=== PATIENT | female | born 1975 | race Caucasian/White ===

== ENCOUNTER 2025-04-01 10:20 | Emergency (ER) | payer BC, SELFPAY ==
--- OUTSIDE RECORDS SUMMARY | 2025-04-01 10:26 | XMS_ITS | Clinical Summary ---
Author Organization [facility] Address [address] [place] [address] Care Team Providers Care Siding Applicator Name Role Phone Jeremiah Malagon MD Primary Care Provider [phone] Source Comments [facility],non-owned Affiliates and Associated Physician Practices is amultiple site organization consisting of ambulatory clinics and hospital sitesin [place], [place], [place] and [place]. This disclosure is being madepursuant to the Care Everywhere program and may not contain all information available regarding this patient. 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 Gender Identity Not on file Sexual Orientation Not on file Plan of Treatment Health Maintenance Due Date Last Done Comments COLOGUARD (AGES 45-75) - COL ON CA SCREENING 1974 COLON MONITORING 1974 COLONOSCOPY - COLON CA SCREENING 1974 CT COLONOGRAPHY - COLON CA SCREENING 1974 Colorectal Cancer Screening 1974 FIT - COLON CA SCREENING 1974 FLEX SIG - COLON CA SCREENING 1974 LIPID TESTING 1974 MAMMOGRAM 1974 HIV SCREENING 1989 HEPATITIS C SCREENING 01/27/1992 DTAP/TDAP/TD VACCINES (1 - Tdap) 1993 HEPATITIS B VACCINE (1 of 3 - 19+ 3-dose series) 1993 PNEUMOCOCCAL VACCINE 50+ (1 of 1 - PCV) 02/01/2024 ZOSTER VACCINE (1 of 2) 02/01/2024 COVID-19 VACCINE (1 - 2023-2 5 season) 2024 DEPRESSION SCREENING 09/27/2024 INFLUENZA VACCINE (Season Ended) 2025 HIB VACCINE Aged Out No longer eligi ble based on patient's age to complete this topic HPV VACCINE Aged Out No longer eligi ble based on patient's age to complete this topic MENINGOCOCCAL (Group B) VACC INE SHARED DECISION-MAKING Aged Out No longer eligibl e based on patient's age to complete this topic MENINGOCOCCAL GROUPS A/C/Y/W VACCINE Aged Out No longer eligible b ased on patient's age to complete this topic Insurance [employer] [facility] Care Teams Siding Applicator Relationship Specialty Start Date End Date Jeremiah Malagon MD [address] [place] [address] PCP - General 06/20/18
--- OUTSIDE RECORDS SUMMARY | 2025-04-01 10:26 | XMS_ITS | Clinical Summary ---
Author Organization [facility] [place] [facility] Address [address] [place] [address] Care Team Providers Care Practice Manager Name Role Phone Marino London MD Primary Care Provider [phone] Allergies Active Allergy Reactions Criticality Noted Date Comments Heparin Other (See comments) Low 07/09/2021 Hyper penia Penicillin Hives,Rash Medium 07/09/2021 Medications Eliquis 5 mg tablet TAKE 2 TABLETS BY MOUTH TWICE DAILY FOR 7 DAYS THEN TAKE 1 TABLET BY MOUTH TWICE DAILY 06/05/2021 Active calcium-vitamin D3-vitamin K 500 mg-1,000 unit-40 mcg tablet,chewable Take by mouth Active gabapentin (NEURONTIN) 300 mg capsule Take 1 capsule (300 mg total) by mouth daily for 3 days, THEN 1 capsule (300 mg total) 2 (two) times a day for 3 days, THEN 1 capsule (300 mg total) 3 (three) times a day. 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 Patient notes occasional oscillopsia while she's fatigued but denies worsening of nystagmus over the past few years. She does notice worsening nystagmus at left gaze but states that it has been stable since 2004. Patient denies alcohol use or changes in recent diet. Today her exam showed small amplitude of rotational nystagmus with saccadic intrusion OD and large amplitude down-beating nystagmus. She has see-saw nystagmus on left gaze. BCVA limited but is explainable to the degree of nystagmus. Discuss with patient since her nystagmus is stable from the time of her CVA, would not recommend repeat imaging. Also, given mild symptoms, offered patient trial of gabapentin 300 mg TID and monitor for symptomatic improvement. Will revisit her nystagmus symptoms in clinic win 6 months with repeat measurements. Patient is encouraged to come in sooner if she noticed worsening nystagmus or vision. Assessment & Plan (07/02/2022 3:33 PM CDT): Occurred secondary to brain infarct after sepsis at age 31. Pt has no complaints and feels her vision is stable. 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 Her current well drill operator rotary drill noted nystagmus was only in left eye for years and and is now affecting the right. Refer to Neuro ophthalmology for eval Severe myopia of both eyes 07/02/2022 Assessment & Plan (07/02/2022 3:46 PM CDT): Poss bilateral amblyopia from high myopia and astigmatism Pt undercorrected for computer, cannot tolerate bifocals Monitor Lattice degeneration of right retina 07/02/2022 Assessment & Plan (07/02/2022 3:47 PM CDT): Warned the patient of signs and symptoms of retinal detachment and to return to clinic promptly if they occur. DVT (deep venous thrombosis) 07/09/2021 Disorder of vein 05/11/2017 Varicose veins of lower extremity 05/11/2017 Surgical History Surgery Date Site/Laterality Comments TONSILLECTOMY CHOLECYSTECTOMY Family History Medical History Relation Name Comments No Known Problems Daughter No Known Problems Father No Known Problems Mother Asthma Son Relation Name Status Comments Daughter Father Mother Son Social History Tobacco Use Types Packs/Day Years Used Date Smoking Tobacco: Former Smokeless Tobacco: Never Personal Safety Answer Date Recorded Getting School Help Needed Not on file 10/01 Comments Unknown Sex and Gender Information Value Date Recorded Sex Assigned at Not on file Legal Sex Female 11:58 PM SENIOR SECURITY ENGINEER Gender Identity Not on file Sexual Orientation Not on file Obstetrics History Last Filed Vital Signs Vital Sign Reading Time Taken Comments Blood Pressure 144/93 07/09/2021 8:25 AM CDT Pulse 94 07/09/2021 8:25 AM CDT Temperature - - Respiratory Rate - - Oxygen Saturation 100% 05/11/2017 8:35 AM CDT Inhaled Oxygen Concentration - - Weight 63.5 kg (140 lb) 07/09/2021 8:25 AM CDT Height 162.6 cm (5' 4) 07/09/2021 8:25 AM CDT Body Mass Index 24.03 07/09/2021 8:25 AM CDT Plan of Treatment Health Maintenance Due Date Last Done Comments Breast Cancer Screening-Mammogram 1974 Cervical Cancer Screening 1974 Colon Cancer Screening-Colonoscopy 1974 Depression Screening 1974 Hepatitis C Screening 1974 DTaP/Tdap/Td Vaccine (1 - Tdap) 1985 Hepatitis B Screening 02/01/1992 Regular Well Visit/Exam 18-64 02/01/1992 Zoster Vaccine (1 of 2) 02/01/2024 Covid-19 Vaccine (3 - 2023-2 5 season) 2024 01/03/2021, 12/06/2020 Influenza Vaccine (#1) 2025 Pneumococcal vaccine <65 Aged Out No longer eligible based on patient's age to complete this topic Insurance [facility] [employer] [place] [employer] [place] Care Teams Practice Manager Relationship Specialty Start Date End Date Marino London MD [facility] [facility] [address] [place] [address] PCP - General Surgery 08/11/21
--- OUTSIDE RECORDS SUMMARY | 2025-04-01 10:26 | XMS_ITS | Encounter Summary ---
Author Organization [place] [facility] Address [address] [place] [address] Phone Care Team Providers Care Photographic Machine Operator Name Role Phone Juancho Serrano MD Primary Care Provider [phone] Unknown, Notinfile Primary Care Provider Unavail able Marino London MD Primary Care Provider [phone] Encounter Details Date Type Department Care Team (Latest Contact Info) Description 05/06/2017 Orders Only [facility] CONVERSION Scanning, Provider Social History Tobacco Use Types Packs/Day Years Used Date Smoking Tobacco: Never Assessed Comments Unknown Sex and Gender Information Value Date Recorded Sex Assigned at Not on file Legal 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 Gender Identity Not on file Sexual Orientation Not on file documented as of this encounter Plan of Treatment Not on file documented as of this encounter Procedures Procedure Name Priority Date/Time Associated Diagnosis Comments VASCULAR LABORATORY REPORT 05/06/2017 7:50 AM CDT documented in this encounter Results * VASCULAR LABORATORY REPORT (05/06/2017 7:50 AM CDT) Anatomical Region Laterality Modality Ultrasound us Provider Scanning CV VASCULAR PROCEDURES Final R esult documented in this encounter Visit Diagnoses Not on filedocumented in this encounter Care Teams Photographic Machine Operator Relationship Specialty Start Date End Date Juancho Serrano MD Replaced by [facility] [place], [place] [id number] PCP - General 05/11/17 09/08/17 Unknown, Notinfile PCP - General 09/09/17 08/10/21 Marino London MD [address] [place] [address] PCP - General Surgery 08/11/21 documented as of this encounter
--- OUTSIDE RECORDS SUMMARY | 2025-04-01 10:26 | XMS_ITS | Referral Summary ---
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 Her current structures technician noted nystagmus was only in left eye [...] 05/11/2017 Varicose veins of lower extremity 05/11/2017 Social History Tobacco Use Types Packs/Day Years Used Date Smoking Tobacco: Former Smokeless Tobacco: Never Personal Safety Answer Date Recorded Getting School Help Needed Not on file 10/01 Comments Unknown Sex and Gender Information Value Date Recorded Sex Assigned at Not on file Legal Sex Female 11:58 PM NECK BAND MAKER Gender Identity Not on file Sexual Orientation Not on file Last Filed Vital Signs Vital Sign Reading [...] 07/09/2021 8:25 AM CDT Plan of Treatment Not on file [place] [employer] [place] [employer] [place] [facility] Care Teams Bearing Machine Operator Relationship Specialty Start Date End Date Marino London MD [facility] [address] [place] [address] PCP - General Surgery 08/11/21
--- OUTSIDE RECORDS SUMMARY | 2025-04-01 10:26 | XMS_ITS | Data Portability ---
Author Organization [facility] Address [address] [place] [address] Care Team Providers Care Professor Of Practice Name Role Phone MICHAELOMID BRIDGES Primary Care Provider [phone] Assessment Encounter Date Assessment Date Assessment LastModified by Organization Details LastModified Time 12/28/2022 12/28/2022 Annual gynecological exam performed. Patient will come back in a year unless there are new symptoms. Not available 12/28/2022 11:23:19 Plan of Treatment Reminders Order Date Submit Date Provider Last Modified By Organization Details Last Modified Time Details Appointments None recorded. Lab None recorded. Referral None recorded. Procedures None recorded. Surgeries None recorded. Imaging MAMMO, screening, bilateral 2022 023 [facility], [address], [place], [address], 3 05:01:41 US, pelvis, complete 2022 023 [facility], [address], [address], [place], [address], 3 05:01:41 Medication Orders None recorded. Patient TargetsNo targets recorded. Patient InstructionsNo instructions recorded. Reason for Referral None Reported. Results Created Date Observation Date Name Description Value Unit Range Abnormal Flag Note LastModifiedBy Organization Detail LastModifiedTime 12/29/1912/28/2022 IMAGE GUIDE D PAP AND HPV REGAR DLESS image guided Pap, HPV regardless of Pap result SEE RESULT S BELOW CASE REPOR T: Cytol ogy Gynec ologi leida Repor t Case: [id number] Autho heather lopez Provi kiran: Jeimy norwood , Shelly Harris cted: 12/28 1703 ANIMAL GROOMER Order ing Locat ion: [place] [facility] log[place]or Recei carley: 12/29 0747 First Scree n: Sabrina Storm, CT Rescr een: Kalyan lopez, Justina bach, CT Speci men: Scree saeid Pap - Image d, Cervi x STATE MENT OF ADEQU ACY: Satis facto ry for evalu ation Trans forma tion zone compo nent absen t The absen ce of an endoc ervic al compo nent was confi rmed by an addit ional javed mcdonough. FINAL DIAGN OSIS: Negat cornell for Intra epith elial Lesio n or Isidro reese (NIL) . Elect yves agrawal maria dolores d by Kalyan lopez, Justina bach, CT on 023 at 5:53 PM ----- ----- ----- ----- ----- ----- ----- ----- ----- ----- ----- ----- ----- ----- ----- ----- ----- ---- HPV RESUL TS: HPV mRNA E6/E7 : No HPV mRNA Detec jennifer NOTE: This high risk HPV mRNA assay detec ts fourt een high- risk HPV types (16, 18, 31, 33, 35, 39, 45, 51, 52, 56, 58, 59, 66, 68) witho ut diffe renti ation . COMME NT: This speci men was revie wed by a Cytot echno logis t and/o r Patho logis t (as indic ated in this repor t) after evalu ation using the Thinp rep Imagi ng Syste m. CLINI LEIDA INFOR MATIO N: Menst rual Statu s: LMP (if appli cable ): Clini leida Histo ry/Pr eviou s Pap: Type of Neopl viky (if appli cable ): Signi fican t Clini leida Findi ngs: Other Histo ry: Hormo tina (if appli cable ): PAP EDUCA ANATOLY L NOTE: The Pap Test is a scree saeid test with an inher ent false negat cornell rate. Liqui d-bas ed sampl ing may decre ase, but will not elimi mirella, false negat cornell resul ts. A negat cornell resul t does not precl ude the prese nce and/o r devel opmen t of disea se, since the prese nce of abnor mal cells in the sampl e depen ds on the locat ion of the lesio n and sampl ing techn ique. Mini nued regul ar scree saeid is the best metho d of cance r preve ntion . If repor jennifer cytol ogic findi ng do not corre late with physi leida and/o r histo rical findi ngs, furth er inves tigat ion is recom kathy d, as clini starla warrjunaid nted. Not Available [facility] ([facility]) [address], [place], [address], 12/30/2022 18:55:25 Result Notes None recorded. Procedures Surgical History Date Name Laterality Status Provider Name and Address Organization Details Recorded Time 10/11/2017 Date of Last Pap Smear completed [facility] 12/28/2022 11:24:33 09/22/2004 tonsilectom y/adenoids completed [facility] 12/28/2022 11:24:41 Imaging Results None recorded. Procedure Notes None recorded. Medical Equipment None Reported. Allergies Allergen ID Allergen Name Allergen Category Reaction Reaction Severity Criticality Documentation Date Start Date Code Code System Note Provider Name and Address Organization Details Recorded Time Product containin g penicilli n (product) medicatio n rash Not available Not available 12/28/2022 46712 8001 SNOMED [facility] 11:24:27 heparin medicatio n other severe Not available 12/28/20222004 5224 RxNorm [facility] 11:24:27 Medications Name Sig Start Date Stop Date Status Note LastModified by Organization Details LastModified Time azithromycin 250 mg tablet 12/28 completed Not Available Not Available Not Available alprazolam 0.25 mg tablet TAKE 1/2 TABLET BY MOUTH TWICE DAILY NEEDED FOR ANXIETY active Not Available Not Available No t Available Vitals Date Recorded Systolic And Diastolic Provider Name and Address Organization Details Last Updated DateTime 12/28/2022 130/78 mm[Hg] Billie Kline, [facility]- [address], [place], [address], [facility] 12/28/2022 11:41:35 Date Recorded Body height Body weight Body mass index (BMI) Provider Name and Address Organization Details Last Updated DateTime 12/28/2022 162.56 cm 81908.59 g 23.6 kg/m2 Hayley Bustamante [facility] 12/28/2022 11:24:20 Social History Question Answer Notes LastModified by Organizat ion Details LastModified Time Tobacco Smoking Status Never Smoker Hayley Bustamante [facility] 12/28/2022 11:26:15 Do You Have An Advance Directive? No Information n ot available 12/28/2022 Are You Blind Or Do You Have Difficulty Seeing? No Information n ot available 12/28/2022 What Is Your Level Of Caffeine Consumption? Occasional Information not available 12/28/2022 How Much Tobacco Do You Chew? None Information not available 12/28/2022 In The 14 Days Before Symptom Onset, Have You Had Close Contact With A Laboratory-confirm ed COVID-19 While That Case Was Ill? No Information n ot available 12/28/2022 In The 14 Days Before Symptom Onset, Have You Had Close Contact With A Person Who Is Under Investigation For COVID-19 While That Person Was Ill? No Information not available 12/28/2022 Have You Been To An Area Known To Be High Risk For COVID-19? No Information not available 12/28/2022 Are You Deaf Or Do You Have Serious Difficulty Hearing? No Information not available 12/28/2022 What Type Of Diet Are You Following? REGULAR Information n ot available 12/28/2022 What Is The Highest Grade Or Level Of School You Have Completed Or The Highest Degree You Have Received? [id number] Information not available 12/28/2022 Are There Any Guns Present In Your Home? No Information not available 12/28/2022 Do You Use Protection During Sex? Always Information not available 12/28/2022 Do You Use Your Seat Belt Or Car Seat Routinely? Yes Information not available 12/28/2022 Do You Have Smoke And Carbon Monoxide Detectors In Your Home? Yes Information not available 12/28/2022 How Much Tobacco Do You Smoke? No Information not available 12/28/2022 Do You Use Sunscreen Routinely? No Information not available 12/28/2022 Have You Used IV Drugs? No Information not available 12/28/2022 Do You Have Difficulty Walking Or Climbing Stairs? No Information not available 12/28/2022 Sex: Unknown Functional Status Question Answer Note LastModified by Organizat ion Details LastModified Time Do you use any illicit or recreational drugs? No Information not available 12/28/2022 What is your level of alcohol consumption? Occasional Information not available 12/28/2022 Are you able to walk? YESWOREST Information not available 12/28/2022 Are you able to care for yourself? 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 No Information not available 12/28/2022 What is your exercise level? None Information not available 12/28/2022 Mental Status None recorded. Family History Relationship Description Onset Age of this Age Resolved Age Notes LastModified by Organization Details LastModified Time Paternal Grandmother Hypertensive disorder 36 39 Not available 2022 11:24:30 Mother Disorder of thyroid gland 57 Not available 2022 11:24:30 Medical History Condition Response Allergies (Food, seasonal, environmental ) Y History of abnormal pap Y Endometriosis Y Deep Vein Thrombosis Y Pre-Eclampsia Y Gynecological History Statement/Question Response Abnormal Pap Y Date of LMP Was last menstrual period normal N STIs/STDs N HPV Vaccine N Current Control Method IUD Age at First Child 23 Date of control 10/11/2017 Are cycles usually normal N Sexually Active? Y Unknown Menses Monthly N Age of first menstrual cycle 12 Date of Last Pap Smear 10/11/2017 Sexual Problems? N Desired Control Method Unknown LMP Unknown Obstetrics History GPAL:G 2 P 2 0 0 2 Type Value Full Term 2 Living 2 Total 2 Past Encounters Encounter ID Performer Location Encounter Start Date Encounter Closed Date Diagnosis/Indication Diagnosis SNOMED-CT Code Diagnosis ICD10 Code Diagnosis Note [id number] Billie Kline [facility] [address] [address] 12/28/2022 11:12:11 12/28/2022 11:43:15 Gynecologic examination 21989651 Z01.419 Suggested Calcium with Vitamin D 1200-1500m g daily. Patient advised to get an annual flu shot in the fall and she could obtain at [facility] or [facility] clinic. Also to obtain TDap vaccinatio n if you have not had one in the last 10 years. Recommend yearly mammograms . Encouraged monthly self breast exams. Encourage safe sexual practices, to use condoms and limit partners if not already in a monogamous relationsh ip. Engage in daily exercise of low impact aerobic exercise 45-60 minutes 4-5 times weekly. Avoid tobacco and illicit drugs as well as using moderation with alcohol intake less than 1-2 8 oz beverages daily. This lifestyle behavior pattern will lead to less health conditions and longer life span. If BMI greater than 25 weight watchers or dietary consult advised. All questions have been answered. Patient appears to understand informatio n, but if you have any questions please call or respond to this emailPap/h pv sentSTD Screen declinedGe netic Screen discussedC olon Screen PCPDexa Screen naRoutine Labs PCP-going to specialist for further evaluation of elevated plateletsM ammo-order ed Screening mammography 24 062279 Z12.31 Abnormal u terine bleeding [id number] 9100 N93.9 Random spotting with mirena IUD.+Miranda gs on examWill get updated US to ensure no other issues. Health Concerns Section Related Observation LastModified by Organization Detai ls LastModified Time None Recorded Concern Status LastModified by Organization Details LastModified Time None Recorded Advance Directives Directive N: Payers Insurance Date Sequence Insurance Name Policy Number Policy Lundberg Covered Member ID Lundberg Member ID Guarantor Name 12/27/2022 1 [facility] [id number] [id number] 52 Sara Julita Notes Date Note Type Note Provider Name and Address Organization Details Recorded Time 12/28/2022 text/html Annual GYNReport ed bypatient.Menstrua l cycle:Normal menses (Amenorrheic on IUD. BUt has been experiencing random spotting the last 2mos.) Urinary symptoms:No hematuria; No incontinence Vulva:No genital lesion Vagina:Normal vaginal discharge Breast:No breast pain; No breast lump; No nipple discharge Current Contraception:Sati sfied with current contraception; Intrauterine device (iud) Sexual complaints:No sexual complaints; No pain during intercourse; Normal libido Menopausal Symptoms:No menopausal symptoms; Normal vaginal lubrication Psychological symptoms:No depression; No anxiety; No PMDD Preventive measures:Encourage self breast examination; Encourage regular exercise; Encourage no tobacco use; Encourage regular mammograms starting age 40; Followed with yearly pap smears; Needs to schedule mammogram; Needs to schedule colonoscopy Billie Kline, [facility]- [address], [place], [address], [facility] 12/28/2022 11:43:00 OBGyn Episode Ob Episode Information Episode Created Date Number of Fetuses Patient Bloodtype Patient rh Status Prepregnancy Weight lbs Domestic Partner Domestic Partner Phone Father Name Airport Sales Agent Status 12/29/19 23 1 CLOSED Fetus Data First Name Last Name Admitted to NICU Weight (g) Sex Living Outcome Pediatric Complications Fetus ID Race Codes Race Delivery Type 2806.37 3704 M Full Term [id number] Vaginal Delivery Andrés Calculation Initial Andrés Date Initial Exam Date Initial Exam Provider Initial Ultrasound Date Last Menstrual Period Date Ultra Sound Weeks Gestation 0 Eighteen To Twenty Week Andrés Update Ultra Sound Date Fundal Height At Umbil Quickening Date Ultra Sound Latest Weeks Gestation Final Andrés Confirmed By Final Andrés Confirmed Date Final Andrés Date Ultra Sound Latest Days Gestation 0 0 Menstrual History Last Menstrual Date Menses Monthly On Bcp Conception Prior Menses Frequency Hcg Plus Date Menarche Onset Age Delivery Information Delivery Date Delivery Type Labor Anesthesia Weeks Gestation Incision Type Labor Labor Length Hrs Delivered By Post Complications Tubal Sterilization Discharge Date Comments 6 Discharge Information Feeding Method Contraceptive Method Maternal HG B and HCT Levels Ob Episode Information Episode Created Date Number of Fetuses Patient Bloodtype Patient rh Status Prepregnancy Weight lbs Domestic Partner Domestic Partner Phone Father Name Airport Sales Agent Status 12/29/19 23 1 CLOSED Fetus Data First Name Last Name Admitted to NICU Weight (g) Sex Living Outcome Pediatric Complications Fetus ID Race Codes Race Delivery Type 2721.55 2 F Full Term [id number] Vaginal Delivery Andrés Calculation Initial Andrés Date Initial Exam Date Initial Exam Provider Initial Ultrasound Date Last Menstrual Period Date Ultra Sound Weeks Gestation 0 Eighteen To Twenty Week Andrés Update Ultra Sound Date Fundal Height At Umbil Quickening Date Ultra Sound Latest Weeks Gestation Final Andrés Confirmed By Final Andrés Confirmed Date Final Andrés Date Ultra Sound Latest Days Gestation 0 0 Menstrual History Last Menstrual Date Menses Monthly On Bcp Conception Prior Menses Frequency Hcg Plus Date Menarche Onset Age Delivery Information Delivery Date Delivery Type Labor Anesthesia Weeks Gestation Incision Type Labor Labor Length Hrs Delivered By Post Complications Tubal Sterilization Discharge Date Comments 8 Discharge Information Feeding Method Contraceptive Method Maternal HG B and HCT Levels
--- OUTSIDE RECORDS SUMMARY | 2025-04-01 10:26 | XMS_ITS | Clinical Summary ---
Author Organization [facility] Address [address] [place] [address] Care Team Providers Care Senior Windows Systems Engineer Name Role Phone Verito Taylor Primary Care Provider [phone] Social History Tobacco Use Types Packs/Day Years Used Date Smoking Tobacco: Never Assessed Comments Unknown Sex and Gender Information Value Date Recorded Sex Assigned at Not on file Legal Sex Female 7:49 PM CDT Gender Identity Not on file Sexual Orientation Not on file Plan of Treatment Health Maintenance Due Date Last Done Comments Cervical Cancer Screening Pa p Smear (Age 30 to 64) Every 3 Years 1974 Colorectal Cancer Screening Colonoscopy (10 Years) 1974 Annual Physical 1977 Hepatitis C 02/01/1992 DTaP, Tdap and Td Vaccines ( 1 - Tdap) 1993 Hepatitis B Vaccines (1 of 3 - 19+ 3-dose series) 1993 Cervical Cancer Screening Pa p with HPV Testing (Age 30 to 64) Every 5 Years 02/01/2004 Cervical Cancer Screening wi th HPV 02/01/2004 Mammogram Screening 2014 Pneumococcal Vaccine: 50+ Years (1 of 1 - PCV) 02/01/2024 Zoster Vaccines (1 of 2) 02/01/2024 COVID-19 Vaccine (2023-2 5 season) 2024 01/03/2021, 12/06/2020 Meningococcal B Vaccine Aged Out No l onger eligible based on patient's age to complete this topic Meningococcal Vaccine Aged Out No reta vicky eligible based on patient's age to complete this topic RSV Immunizations Under 20 Months Aged Out No longer eligible b ased on patient's age to complete this topic Insurance Care Teams Senior Windows Systems Engineer Relationship Specialty Start Date End Date Verito Taylor PA PCP - General PHYSICIAN DIGITAL CONTENT PRODUCER 06/05/21
--- OUTSIDE RECORDS SUMMARY | 2025-04-01 10:26 | XMS_ITS | Encounter Summary ---
Author Organization [facility] Address [address] [place] [address] Phone Care Team Providers Care Syrup Mixer Assistant Name Role Phone Juancho Serrano MD Primary Care Provider [phone] Unknown, Notinfile Primary Care Provider Unavail able Marino London MD Primary Care Provider [phone] Encounter Details Date Type Department Care Team (Latest Contact Info) Description 06/21/2017 Orders Only WU CONVERSION Scanning, Provider Social History Tobacco Use Types Packs/Day Years Used Date Smoking Tobacco: Former Comments Unknown Sex and Gender Information Value Date Recorded Sex Assigned at Not on file Legal Sex Female 11:58 PM SCALLOP BINDER Gender Identity Not on file Sexual Orientation Not on file documented as of this encounter Plan of Treatment Not on file documented as of this encounter Procedures Procedure Name Priority Date/Time Associated Diagnosis Comments VASCULAR LABORATORY REPORT 06/21/2017 10:42 PM CDT documented in this encounter Results * VASCULAR LABORATORY REPORT (06/21/2017 10:42 PM CDT) Anatomical Region Laterality Modality Ultrasound us Provider Scanning CV VASCULAR PROCEDURES Final R esult documented in this encounter Visit Diagnoses Not on filedocumented in this encounter Care Teams Syrup Mixer Assistant Relationship Specialty Start Date End Date Juancho Serrano MD [facility] [place] [address] PCP - General 05/11/17 09/08/17 Unknown, Notinfile PCP - General 09/09/17 08/10/21 Marino London MD [address] [place] [address] PCP - General Surgery 08/11/21 documented as of this encounter
--- OUTSIDE RECORDS SUMMARY | 2025-04-01 10:26 | XMS_ITS | Encounter Summary ---
Author Organization [facility] Address [address] [place] [address] Phone Care Team Providers Care Glass Driller Name Role Phone Marino London MD Primary Care Provider [phone] Encounter Details Date Type Department Care Team (Late st Contact Info) Description 08/05/2023 Telephone [facility] Ophthalmology [facility] [address] [place] [phone] Vira King COA Social History Tobacco Use Types Packs/Day Years Used Date Smoking Tobacco: Former Smokeless Tobacco: Never Comments Unknown Sex and Gender Information Value Date Recorded Sex Assigned at Not on file Legal Sex Female 11:58 PM IMPRESS ASSOCIATE Gender Identity Not on file Sexual Orientation Not on file documented as of this encounter Plan of Treatment Not on file documented as of this encounter Visit Diagnoses Not on filedocumented in this encounter Care Teams Glass Driller Relationship Specialty Start Date End Date Marino London MD [address] [place] [address] PCP - General Surgery 08/11/21 documented as of this encounter
--- NOTE | 2025-04-01 10:32 | ED.URI ---
HPI - URI/Sore Throat General Chief Complaint: Upper Respiratory Infection Stated Complaint: migraine/fever/body ache Time Seen by Provider: 04/01/25 11:20 Source: patient Mode of arrival: ambulatory Limitations: no limitations History of Present Illness HPI Narrative: Sara is a 50-year-old female patient presenting to the clinic today with complaints of migraine headache, nausea, photosensitivity, cough, felt feverish, and body aches, nasal congestion, and sore throat x2 days. Has taken Excedrin migraine and ibuprofen for symptoms. Denies any chest pain or shortness of breath. Related Data Home Medications ?Medication ?Instructions ?Recorded ?Confirmed ?Last Taken ?Type levonorgestrel (Mirena) 1 device intrauterine ONCE 04/01/25 04/01/25 Unknown History Allergies Allergy/AdvReac Type Severity Reaction Status Date / Time Heparin Analogues Allergy Severe HEPARIN Verified 04/01/25 11:17 INDUCED THROMBOCYTOPENIA Penicillins Allergy Intermediate Hives / Verified 04/01/25 11:17 Red Face Review of Systems Review of Systems: Pertinent positives per HPI. Patient denies any fever, chills, rash, headache, visual changes, dizziness, cough, shortness of breath, chest pain, palpitations, nausea, vomiting, diarrhea, constipation, abdominal pain, or any urinary issues. PMFSH Social History Social History Smoking status: Unknown if ever smoked Tobacco type: cigarettes Second hand tobacco smoke exposure: No Alcohol intake: current Alcohol use details: rare Substance use: never Substance use type: does not use Lack of Transportation: No Lack of Food: Never True Current Housing: I Have Housing Concerned About Future Housing: No Difficulty Paying Gas/Electric Bills: No Difficulty Paying for Meds: No Currently Unemployed: No Education: Bachelor's Degree Difficulty w/ Childcare or Family Care: No Living arrangements: with family Occupation/Education: occupation Gender identity (if verbalized by the patient): Female Sexual Orientation (if Verbalized by the Patient): Straight or Heterosexual Comments At the time of my signature, I reviewed and agree with the nursing past medical, surgical, social, and family history. There is no relevant family history pertinent to the patient complaint. Exam Narrative: General: Well-developed, well nourished, in no apparent distress Head: Normocephalic, atraumatic Eyes: Pupils equally round and reactive to light bilaterally, EOM intact, sclera and conjunctive clear, no discharge, lids normal Ears: TMs intact and congested, ear canals clear, no drainage, grossly hearing normal. Nose: Nares patent, clear nasal discharge, no inflammation, no sinus tenderness. Mouth: Oral pharynx red without lesions or masses, good dentition, MMM. Postnasal drip Neck: Supple, trachea midline, no enlargement of anterior or posterior cervical nodes, no thyroid masses or goiter palpable. Cardio: Tachycardic- Regular rate and rhythm, s1 and s2 normal, no murmur appreciated. Resp: Clear to auscultation bilaterally, no rhonchi, rales, wheezing or rubs Musculoskeletal: No deformity, non-tender to palpation, grossly normal range of motion, muscle strength strong and equal, peripheral pulse strong, trace edema in bilateral lower extremities, no cyanosis, normal gait and station Neuro: Alert and oriented x4 with normal speech, no focal deficits, cranial nerves I through XII intact, muscle strength 5 out of 5, sensation intact bilaterally. Course Course Emergency Course: Portions of this record may have been created with voice recognition software. Level of Care: Express Care Visit Vital Signs Vital signs: Vital Signs Temperature 36.7 C 04/01/25 11:05 Pulse Rate 138 H 04/01/25 11:05 Respiratory Rate 18 04/01/25 11:05 Blood Pressure 114/87 04/01/25 11:05 Pulse Oximetry 99 04/01/25 11:05 Oxygen Delivery Room Air 04/01/25 11:05 Temperature 36.7 C 04/01/25 11:05 Pulse Rate 138 H 04/01/25 11:05 Respiratory Rate 18 04/01/25 11:05 Blood Pressure 114/87 04/01/25 11:05 Pulse Oximetry 99 04/01/25 11:05 Oxygen Delivery Room Air 04/01/25 11:05 Vital signs reviewed Transfer Transfered to: Other ([facility]) Transportation: Other (Private car) Transfer rationale: Chest/back pain on inspiration. Tachycardia. History of DVT r/o PE Accepting physician: Dr. Salazar Transfer comments: Private car- NPO MDM - URI/Sore Throat MDM Narrative Medical decision making narrative: At the time of visit patient is resting on the exam table. Patient appears to be acutely ill. Medications: Toradol 60 mg IM, Benadryl 50 mg IM, and Zofran 8 mg ODT given for migraine headache EKG: EKG shows sinus tachycardia with heart rate of 127 beats per minute. No ST elevation, depression, or T-wave inversion noted Labs: COVID, influenza, and strep test were all negative. We will send strep for culture Plan: Patient reports that her headache is improving after medications. Heart rate continues to be in the high 120s. Recommend transfer to the ER for further evaluation as patient has had a history of DVT in the past and is reporting chest/back pain with inspiration. Lung sounds are clear in the clinic today. Saturation is 99% on room air. Patient needs further evaluation to rule out PE as she is a moderate risk according to the Wells criteria. Patient would like to go to [place] the ER. Report was called to nurse and Dr. Salazar is the accepting provider. Patient to go by private car and remain NPO Well Criteria for PE: 3.0?points Moderate risk group: 16.2% chance of PE in an ED population. Another study assigned scores <=4 as ?PE Unlikely? and had a 3% incidence of PE. Differential Diagnosis Differential diagnosis: Likely upper respiratory infection, otitis media, sinusitis, viral infection, bronchitis, influenza, pharyngitis and other (COVID, PE, pneumonia, pleurisy, migraine headache) Lab Data Labs: Lab Results 04/01/25 Range/Units 11:41 POC Influenza A Ag Negative (Negative) POC Influenza B Ag Negative (Negative) POC SARS CoV-2 Ag Negative (Negative) POC Grp A Strep Screen Negative (Negative) ECG Data EKG #1: Attestation: I personally reviewed and interpreted this ECG as follows: ECG completion date: 04/01/25 ECG completion time: 11:35 Prior ECG tracings: not available for review Interpretation: EKG shows sinus tachycardia with heart rate of 127 beats per minute. No ST elevation, depression, or T-wave inversion. KS interval is 149 milliseconds, QRS durations 86 milliseconds, QT-QTC is to her 93-368 milliseconds, P-R-T axis is 81 58 54 Discharge Plan Discharge Clinical Impression: Chest pain on respiration, Tachycardia, Acute viral syndrome Headache, migraine Qualifiers: Migraine type: unspecified Status migrainosus presence: without status migrainosus Intractability: not intractable Qualified Code(s): G43.909 - Migraine, unspecified, not intractable, without status migrainosus Patient Disposition: Acute Care Hospital Condition: Stable Instructions: Antibiotic Form Patient Language: Georgian Prescriptions: No Action Mirena 21 mcg/24hr (up to 8 yrs) 52 mg intrauterine device 1 device intrauterine ONCE Rx Instructions: as a single dose Follow-up/Referrals: Brigid Echols PA-C [Primary Care Provider] - Time of Disposition: 11:45 Quality NIHSS Nursing Documentation ED NIHSS nursing documentation: reviewed/agree
[2025-04-01 11:05] VITALS: BP 114/87; PULSE 138; RESP 18; TEMP 36.7; O2SAT 99
[2025-04-01] MEDS: ONDANSETRON HCL ODT 4 MG TABLET 8 MG SUBLINGUAL (11:27)
[2025-04-01] MEDS: KETOROLAC (*BKC) 60 MG/2 ML VIAL IM (11:29)
--- NOTE | 2025-04-01 11:32 | ECG_ITS ---
Test Date: 2025-04-01 11:35:12 Measurements Intervals Martell Rate: 127 P: 81 NC: 149 QRS: 58 QRSD: 86 T: 54 QT: 293 QTc: 426 Interpretive Statements SINUS TACHYCARDIA ABNORMAL RHYTHM ECG No previous ECG available for comparison Electronically Signed On 04-01-2025 13:52:10 CDT by Mikel Fernandes M.D.
[2025-04-01 11:42] VITALS: PULSE 129; O2SAT 98
[2025-04-01 11:43] LABS: EDCOVIDSCREEN Negative (Negative); EDINFLUASCREEN Negative (Negative); EDINFLUBSCREEN Negative (Negative); EDSTREPNEGPOS1 Negative (Negative)
== END 2025-04-01 11:42 | disposition short-term general hospital (02) ==
PROVIDERS: Emergency Provider Nurse Practitioner Family; PCP Physician Assistant Medical
DX: R07.1 Chest pain on breathing (principal); R00.0 Tachycardia, unspecified; B34.9 Viral infection, unspecified; G43.909 Migraine, unspecified, not intractable, without status migrainosus; Z20.822 Contact with and (suspected) exposure to COVID-19; J45.909 Unspecified asthma, uncomplicated; Z86.718 Personal history of other venous thrombosis and embolism; Z86.73 Personal history of transient ischemic attack (TIA), and cerebral infarction without residual deficits
CPT/HCPCS: 87081; 87426; 87804; 87880; 93005; 96372; 99214; A9270; G0463; J1200; J1885

== ENCOUNTER 2025-04-14 07:20 | Outpatient (CLI) | payer BC, SELFPAY ==
--- NOTE | ~2025-04-14 | US_ITS ---
Thyroid ultrasound. Clinical History: Abnormal findings of blood chemistry Findings: Real-time sonography of the thyroid gland was performed. The right lobe measures 4.8 x 0.9 x 1.4 cm. The left lobe measures 3.5 x 1.0 x 1.3 cm. The isthmus is 1 mm in AP diameter. No thyroid nodule seen. Impression: Unremarkable exam. Reviewed, dictated and finalized at location . Impression: Unremarkable exam.
== END 2025-04-14 07:21 | disposition home or self-care (01) ==
PROVIDERS: PCP Physician Assistant Medical; Visit Provider Physician Assistant Medical
DX: R79.89 Other specified abnormal findings of blood chemistry (principal)
CPT/HCPCS: 76536

== ENCOUNTER 2025-08-21 13:20 | Outpatient (CLI) | payer BC, SELFPAY ==
--- NOTE | ~2025-08-21 | NM_ITS ---
NM thyroid scan w uptake 08/24/2025 14:06 HAND DRAWER IN HELPER INDICATION: Thyrotoxicosis TECHNIQUE: Following intravenous administration of 123 sodium iodide, multiple images of the thyroid gland were obtained. The 24-hour thyroid uptake value was obtained.] COMPARISON: Nuclear thyroid scan dated 04/14/2025 FINDINGS: The images demonstrate normal configuration of the thyroid gland and homogeneous distribution of the radionuclide. No focal areas of increased or decreased activity are identified. 24-hour thyroid uptake is 1.8% (right lobe uptake 1.1% and left lobe uptake 0.7%), which is below the normal range of 7-30%.] IMPRESSION: 1: Normal thyroid scan. 2: 24 hour iodine- 123 uptake below normal limits measuring 1.8%. Reviewed, dictated and finalized at location I. DRAWER IN HELPER
--- OUTSIDE RECORDS SUMMARY | 2025-08-21 14:59 | XMS_ITS | Encounter Summary ---
Author Organization [facility] Address [address] [place] [address] Phone Care Team Providers Care Electronic News Gathering Editor Name Role Phone Marino London MD Primary Care Provider [phone] Encounter Details Date Type Department Care Team (Late st Contact Info) Description 08/05/[address] 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
--- OUTSIDE RECORDS SUMMARY | 2025-08-21 14:59 | XMS_ITS | Encounter Summary ---
Author Organization [facility] Address [address] [place] [address] Phone Care Team Providers Care Tool Storage Attendant Name Role Phone Juancho Serrano MD Primary Care Provider [phone] Unknown, Notinfile Primary Care Provider Unavail able Marino London MD Primary Care Provider [phone] Encounter Details Date Type Department Care Team (Latest Contact Info) Description 06/21/2017 Orders Only [facility] CONVERSION Scanning, Provider Social History Tobacco Use Types Packs/Day Years Used Date Smoking Tobacco: Former Comments Unknown Sex and Gender Information Value Date Recorded Sex Assigned at Not on file 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
--- OUTSIDE RECORDS SUMMARY | 2025-08-21 14:59 | XMS_ITS | Clinical Summary ---
Author Organization [facility] Address [address] [place] [address] Care Team Providers Care Geophysical Observer Name Role Phone Verito Taylor Primary Care Provider [phone] Allergies Active Allergy Reactions Criticality Noted Date Comments Amoxicillin Rash Low 04/01/2025 Heparin Other (see comment) 04/01/2025 purpra Medications ALPRAZolam (XANAX) 0.25 MG tablet Take 1 tablet (0.25 mg total) by mouth 2 (two) times a day. Active Sodium Sulfate-Mag Sulfate-KCl (SUTAB) 8943-639-321 MG TabIndications :Special screening for malignant neoplasms, colon Take 12 tablets by mouth see administration instructions. 24 tablet 5 Active ondansetron (ZOFRAN) 8 MG tabletIndicati ons:Special screening for malignant neoplasms, colon Take 1 tablet (8 mg total) by mouth every 8 (eight) hours as needed. 4 tablet 5 Active Resolved Problems Problem Noted Date Diagnosed Date Resolved Date Special screening for malign ant neoplasms, colon 05/22/2025 05/28/2025 Special screening for malign ant neoplasms, colon 05/22/2025 06/25/2025 Encounters Date Type Department Care Team Description 07/26/2025 Telephone [facility] General Surgery [facility] [address] [place] [address] Noris Houser MD Reschedule 06/15/2025 Telephone [facility] General Surgery [facility] [address] [place] [address] Noris Houser MD Other 05/25/2025 Orders Only [facility] [address] [place] [address] Noris Houser MD 05/22/2025 Prep for Procedure [facility] [address] [place] [address] Noris Houser MD from Last 3 Months Social History Tobacco Use Types Packs/Day Years Used Date Smoking Tobacco: Never Assessed Comments Unknown Sex and Gender Information Value Date Recorded Sex Assigned at Not on file Legal Sex Female 7:49 PM CDT Gender Identity Not on file Sexual Orientation Not on file Last Filed Vital Signs Vital Sign Reading Time Taken Comments Blood Pressure 120/72 04/01/2025 5:21 PM CDT Pulse 100 04/01/2025 5:21 PM CDT Temperature 37.1 C (98.8 F) 04/01/2025 12:10 PM CDT Respiratory Rate 16 04/01/2025 5:21 PM CDT Oxygen Saturation 98% 04/01/2025 5:21 PM CDT Inhaled Oxygen Concentration - - Weight 61.7 kg (136 lb) 04/01/2025 12:10 PM CDT Height 162.6 cm (5' 4) 04/01/2025 12:10 PM CDT Body Mass Index 23.34 04/01/2025 12:10 PM CDT Plan of Treatment Health Maintenance Due Date Last Done Comments Colorectal Cancer Screening Colonoscopy (10 Years) 1974 Annual Physical 1977 Hepatitis C 02/01/1992 DTaP, Tdap and Td Vaccines ( 1 - Tdap) 1993 Hepatitis B Vaccines (1 of 3 - 19+ 3-dose series) 1993 Cervical Cancer Screening Pa zane with HPV Testing (Age 30 to 64) Every 5 Years 02/01/2004 Mammogram Screening 2014 Pneumococcal Vaccine: 50+ Years (1 of 1 - PCV) 02/01/2024 Zoster Vaccines (1 of 2) 02/01/2024 PHQ-2 (Physician [place]) 09/27/2024 COVID-19 Vaccine (3 - 2024-2 6 season) 2025 01/03/2021, 12/06/2020 Influenza Adult (#1) 2025 Cervical Cancer Screening Pa p Smear (Age 30 to 64) Every 3 Years 12/28/2025 12/28/2022 Cervical Cancer Screening wi th HPV 12/28/2025 Hepatitis A Vaccines Aged Out No long er eligible based on patient's age to complete this topic Meningococcal B Vaccine Aged Out No l onger eligible based on patient's age to complete this topic Meningococcal Vaccine Aged Out No reta vicky eligible based on patient's age to complete this topic RSV Immunizations Under 20 Months Aged Out No longer eligible b ased on patient's age to complete this topic Insurance Care Teams Geophysical Observer Relationship Specialty Start Date End Date Verito Taylor PA PCP - General PHYSICIAN SURG NURSE 06/05/21
--- OUTSIDE RECORDS SUMMARY | 2025-08-21 14:59 | XMS_ITS | Data Portability ---
Author Organization [facility] Address [address] [place] [address] Care Team Providers Care C D Still Operator Name Role Phone MICHAELOMID BRIDGES Primary Care Provider Assessment Encounter Date Assessment Date Assessment LastModified [...] recorded. Imaging MAMMO, screening, bilateral 2022 023 [facility], [address], [place], [address], 3 05:01:41 US, pelvis, complete 2022 023 [facility], [address], [address], [place], [address], 3 05:01:41 Medication Orders None recorded. Patient [...] [place] , Shelly Harris cted: 12/28 1703 [facility] Order ing Locat ion: [place] [facility] [place] [...] as clini starla warrjunaid nted. Not Available [facility] ([facility]) [address], [place], [address], 12/30/2022 18:55:25 Result Notes None recorded. Procedures Surgical History Date Name Laterality Status Provider Name and Address Organization Details Recorded Time 10/11/2017 Date of Last Pap Smear completed [facility] 12/28/2022 11:24:33 09/22/2004 tonsilectom y/adenoids completed [facility] 12/28/2022 11:24:41 Imaging Results None recorded. Procedure Notes None recorded. Medical Equipment None Reported. Allergies Allergen ID Allergen Name Allergen Category Reaction Reaction Severity Criticality Documentation Date Start Date Code Code System Note Provider Name and Address Organization Details Recorded Time Product containin g penicilli n (product) medicatio n rash Not available Not available 12/28/2022 93827 8001 SNOMED [facility] 11:24:27 heparin medicatio n other severe Not available 12/28/20222004 5224 RxNorm [facility] 11:24:27 Medications Name Sig Start Date [...] Updated DateTime 12/28/2022 130/78 mm[Hg] Billie Kline, [facility]- [address], [place], [address], [facility] 12/28/2022 11:41:35 Date Recorded Body height Body weight Body mass index (BMI) Provider Name and Address Organization Details Last Updated DateTime 12/28/2022 162.56 cm 76264.59 g 23.6 kg/m2 Hayley Bustamante [facility] 12/28/2022 11:24:20 Social History Question Answer Notes LastModified by Organizat ion Details LastModified Time Tobacco Smoking Status Never Smoker Hayley Bustamante [facility] 12/28/2022 11:26:15 Do You Have An [...] Or The Highest Degree You Have Received? [id number] Information not available 12/28/2022 Are There Any [...] not available 12/28/2022 Are you able to walk independently without assistance or assistive devices? YESWOREST Information not available 12/28/2022 Are you able to care for yourself independently? 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 No Information not available 12/28/2022 What is [...] Diagnosis SNOMED-CT Code Diagnosis ICD10 Code Diagnosis IMO Codes Diagnosis Note [id number] Billie Kline , [facility] [address] [address] 12/28/2022 11:12:11 12/28/2022 11:43:15 Gynecologic examination [id number] Z01.419 Suggested Calcium with Vitamin D 1200-1500m g daily. Patient advised to get an annual flu shot in the fall and she could obtain at [facility] or [facility] care clinic. Also to obtain TDap vaccinatio n [...] elevated plateletsM ammo-order ed Screening mammography 24 016248 Z12.31 Abnormal u terine bleeding [id number] 9100 N93.9 Random spotting with mirena IUD.+Miranda coulter on examWill get updated US to ensure no other issues. Health Concerns Section Related Observation LastModified by Organization Detai ls LastModified Time None Recorded Concern Status LastModified by Organization Details LastModified Time None Recorded Advance Directives Directive N: Payers Insurance Date Sequence Insurance Name Policy Number Policy Lundberg Covered Member ID Lundberg Member ID Guarantor Name 12/27/2022 1 [facility] ([facility] [id number] Sara PeacockPidefarma [id number] Sara [facility] Notes Date Note Type Note Provider Name and Address Organization Details Recorded Time 12/29/19 23 text/ht ml Annual GYNReported by PatientGenitourinary symptomsFor menstrual cycle, patient reportsnormal menses (amenorrheic on iud. but has been experiencing random spotting the last 2mos.). For urinary symptoms, patient reportsno hematuriaandno incontinence. For vulva, patient reportsno genital lesion. For vagina, patient reportsnormal vaginal discharge.Breast symptomsFor breast, patient reportsno breast pain,no breast lump, andno nipple discharge.ContraceptionFor current contraception, patient reportssatisfied with current contraceptionandintrauterine device (iud).Endocrine symptomsFor sexual complaints, patient reportsno sexual complaints,no pain during intercourse, andnormal libido. For menopausal symptoms, patient reportsno menopausal symptomsandnormal vaginal lubrication.Psychological symptomsFor psychological symptoms, patient reportsno depression,no anxiety, andno pmdd.Preventative measuresFor preventive measures, patient reportsencourage self breast examination,encourage regular exercise,encourage no tobacco use,encourage regular mammograms starting age 40,followed with yearly pap smears,needs to schedule mammogram, andneeds to schedule colonoscopy. Billie Kline, LINDY- [address], [place], [address], [place] [facility] 12/28/2022 11:43:00 OBGyn Episode Ob Episode Information Episode Created Date Number of Fetuses Patient Bloodtype Patient rh Status Prepregnancy Weight lbs Domestic Partner Domestic Partner Phone Father Name Sales Development Consultant Status 12/29/19 23 1 CLOSED Fetus Data First Name Last Name Admitted to NICU Weight (g) Sex Living Outcome Pediatric Complications Fetus ID Race Codes Race Delivery Type 2806.37 3704 M Full Term 79797 Vaginal Delivery Andrés Calculation Initial Andrés Date [...] Domestic Partner Domestic Partner Phone Father Name Sales Development Consultant Status 12/29/19 23 1 CLOSED Fetus Data First Name Last Name Admitted to NICU Weight (g) Sex Living Outcome Pediatric Complications Fetus ID Race Codes Race Delivery Type 2721.55 2 F Full Term [id number] Vaginal Delivery Andrés Calculation Initial Andrés Date [...]
--- OUTSIDE RECORDS SUMMARY | 2025-08-21 14:59 | XMS_ITS | Encounter Summary ---
Author Organization [facility] Address [address] [place] [address] Phone Care Team Providers Care Shingle Weaver Name Role Phone Juancho Serrano MD Primary Care Provider [phone] Unknown, Notinfile Primary Care Provider Unavail able Marino London MD Primary Care Provider [phone] Encounter Details Date Type Department Care Team (Latest Contact Info) Description 05/06/2017 Orders Only [facility] CONVERSION Scanning, Provider Social History Tobacco Use Types Packs/Day Years Used Date Smoking Tobacco: Never Assessed Comments Unknown Sex and Gender Information Value Date Recorded Sex Assigned at Not on file 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 [place] [address] PCP - General Surgery 08/11/21 documented as of this encounter
--- OUTSIDE RECORDS SUMMARY | 2025-08-21 14:59 | XMS_ITS | Clinical Summary ---
Author Organization [facility] Address [address] [place] [address] Care Team Providers Care Chemist Name Role Phone Jeremiah Malagon MD Primary Care Provider [phone] Source Comments [facility],non-owned Affiliates and Associated Physician Practices is amultiple site organization consisting of ambulatory clinics and hospital sitesin [place], [place], [place] and [place]. This disclosure is being madepursuant to the Care Everywhere program and may not contain all information available regarding this patient. 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 Gender Identity Not on file Sexual Orientation [...] of 3 - 19+ 3-dose series) 1993 PAP SMEAR 03/01/2001 03/01/1998 Cervical Cancer Screening 02/01/2004 PAP with HPV 02/01/2004 PNEUMOCOCCAL VACCINE 50+ (1 of 1 - PCV) 02/01/2024 ZOSTER VACCINE (1 of 2) 02/01/2024 DEPRESSION SCREENING 09/27/2024 COVID-19 VACCINE ( - 2024-2 6 season) 2025 INFLUENZA VACCINE (#1) 2025 HIB VACCINE Aged Out No longer [...] on patient's age to complete this topic Procedures Procedure Name Priority Date/Time Associated Diagnosis Comments CYTOLOGY SMEAR PAP SHRUTI 03/01/1998 11 :41 AM CDT from Last 3 Months or Most Recently Relevant to Health Maintenance Results * CYTOLOGY SMEAR PAP (03/01/1998 11:41 AM CDT) Result CASE NUMBER [id number] Comment: ORDERING PHYSICIAN SHONNA WALKER SPECIMEN TYPE PAP Smear Date 03/01/1998 Procedure Cervical/Endocervical, 1 smear received Specimen Adequacy Satisfactory for Evaluation Categorization Within Normal Limits Snomed. 03/06/1998 1152 <1> Floor Care Technician Luis Alfredo Ontiveros (ASCP) PAP Footnote The PAP smear is only a screening procedure to aid in the detection of cervical cancer and its precursors. It is not a diagnostic procedure and should not be used as the sole means to detect cervical cancer. Both false negative and false positive results have been experienced. MISCELLANEOUS SAMPLES / Unknown 03/01/1998 11:41 AM CDT 03/04/1998 11:41 AM CDT Historical Provider LAB - PATHOLOGY/CYTOLOGY ORDERABLES Final Result from Last 3 Months or Most Recently Relevant to Health Maintenance Insurance [employer] Care Teams Chemist Relationship Specialty Start Date End Date Jeremiah Malagon MD [address] [id number] PCP - General 06/20/18
--- OUTSIDE RECORDS SUMMARY | 2025-08-21 14:59 | XMS_ITS | Clinical Summary ---
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 Her current child protective investigator noted nystagmus was only in left eye [...] on file Legal Sex Female 11:58 PM ASSISTANT BRANCH OPERATIONS MANAGER Gender Identity Not on file Sexual [...] of 2) 02/01/2024 Covid-19 Vaccine (3 - 2024-2 6 season) 2025 01/03/2021, 12/06/2020 Influenza Vaccine (#1) 2025 Pneumococcal vaccine <65 Aged Out No longer eligible based on patient's age to complete this topic Insurance [facility] [place] [employer] [place] Care Teams Analytics Architect Relationship Specialty Start Date End Date Marino London MD [address] [place] [address] PCP - General Surgery 08/11/21
== END 2025-08-21 13:21 | disposition home or self-care (01) ==
PROVIDERS: PCP Physician Assistant Medical; Visit Provider Physician Assistant Medical
DX: E05.90 Thyrotoxicosis, unspecified without thyrotoxic crisis or storm (principal)
CPT/HCPCS: 78014; A9516